=== PATIENT | male | born 1955 | race African-American/Black ===

== ENCOUNTER 2016-08-12 10:03 | Inpatient (IN) | payer OTHER ==
[2016-08-12 10:28] VITALS: BMI 37.3
--- NOTE | 2016-08-12 10:41 | HP ---
CIWA Score - CIWA Score Nausea/Vomitin-Mild Nausea/No Vomiting Muscle Tremors: 4-Moderate,w/Arms Extend Anxiety: 4-Mod. Anxious/Guarded Agitation: 1-Slight > Activity Paroxysmal Sweats: 1-Minimal Palms Moist Orientation: 0-Oriented Tacttile Disturbances: 1-Very Mild Itch/Numbness Auditory Disturbances: 1-Very Mild Visual Disturbances: 1-Very Mild Sensitivity Headache: 1-Very Mild CIWA-Ar Total Score: 15 Admission ROS BHS - HPI Chief Complaint: I fell out, they said it was from drinking and I need help to stop Allergies/Adverse Reactions: Allergies Allergy/AdvReac Type Severity Reaction Status Date / Time aspirin Allergy Intermediate Swelling Verified 08/12/16 10:44 pcn Allergy Intermediate Swelling Uncoded 08/12/16 10:44 History of Present Illness: 61 yo here for detox from alcohol. Previously in detox at [place] 30 years ago. First time detox here. Retired and then started drinking daily. Had a seizure a week ago and told he needs to stop drinking. Patient is a resident of [facility] for [facility] - states rehab has been arranged at [place] following detox. Exam Limitations: Clinical Condition - Ebola screening Have you traveled outside of the country in the last 21 days: No Have you had contact with anyone from an Ebola affected area: No Have you been sick,other than usual withdrawal symptoms: No Do you have a fever: No - Review of Systems Constitutional: No Symptoms Reported EENT: reports: Blurred Vision Respiratory: reports: No Symptoms reported Cardiac: reports: No Symptoms Reported GI: reports: No Symptoms Reported : reports: Frequency Musculoskeletal: reports: Back Pain, Joint Pain, Joint Stiffness Integumentary: reports: Dryness Neuro: reports: Seizure, Other (needs cane to walk) Endocrine: reports: No Symptoms Reported Hematology: reports: No Symptoms Reported Psychiatric: reports: Judgement Intact, Mood/Affect Appropiate, Orientated x3 Other Systems: Reviewed and Negative Patient History - Patient Medical History Hx Anemia: No Hx Asthma: No Hx Chronic Obstructive Pulmonary Disease (COPD): No Hx Cancer: No Hx Cardiac Disorders: No Hx Congestive Heart Failure: No Hx Hypertension: No Hx Hypercholesterolemia: No Hx Pacemaker: No HX Cerebrovascular Accident: No Hx Seizures: Yes (one week ago, drug related) Hx Dementia: No Hx Diabetes: No Hx Gastrointestinal Disorders: No Hx Liver Disease: No Hx Genitourinary Disorders: No Hx Sexually Transmitted Disorders: Yes (treated years ago ) Hx Renal Disease (ESRD): No Hx Thyroid Disease: No Hx Human Immunodeficiency Virus (HIV): No Hx Hepatitis C: No Hx Depression: No Hx Suicide Attempt: Yes (once 1981 - hospitalized -cut wrists) Hx Bipolar Disorder: No Hx Schizophrenia: Yes (on meds) Other Medical History: osteoarthritis, low back pain with right sided sciatica - Patient Surgical History Hx Orthopedic Surgery: Yes (right hip replacement x 2 in 1991 and 2011; left hip replacment 2010) Other Surgical History: thyroid removed 1990 ? partial - PPD History Previous Implant?: Yes Documented Results: Negative w/o proof PPD to be Administered?: Yes - Reproductive History Patient is a Female of Child Bearing Age (11 -55 yrs old): No (male) - Smoking Cessation Smoking history: Current every day smoker Have you smoked in the past 12 months: Yes Aproximately how many cigarettes per day: 5 Initiated information on smoking cessation: Yes 'Breaking Loose' booklet given: 08/12/16 (give on floor) - Substance & Tx. History Hx Alcohol Use: Yes Hx Substance Use: Yes (no cocaine x 20 years) Substance Use Type: Alcohol, Cocaine Hx Substance Use Treatment: Yes (detox, rehab) - Substances Abused Alcohol Route: Oral Frequency: Daily Amount used: four 24 oz beers Age of first use: 14 Date of Last Use: 08/12/16 Family Disease History - Family Disease History Family Disease History: Diabetes: Grandparent (, one dm), Other: Grandparent, Father (, mva, ), Mother (alive, no problems), Brother ( two bro, no problems, ), Sister (one alive, no problems, ) Admission Physical Exam S - Vital Signs Vital Signs: Vital Signs - 24 hr 08/12/16 10:26 Temperature 97.6 F Pulse Rate 79 Respiratory 20 Rate Blood Pressure 127/83 - Physical General Appearance: Yes: Nourished, Appropriately Dressed, Mild Distress, Obese , Anxious HEENTM: Yes: Normal ENT Inspection, Normocephalic, Normal Voice, Pharynx Normal Respiratory: Yes: Normal Breath Sounds, No Respiratory Distress Neck: Yes: No masses,lesions,Nodules, Supple Breast: Yes: Breast Exam Deferred Cardiology: Yes: Regular Rhythm, Regular Rate Abdominal: Yes: Soft, Protuberent Genitourinary: Yes: Frequency Back: Yes: Decreased Range of Motion Musculoskeletal: Yes: full range of Motion, Back pain, Joint Stiffness Extremities: Yes: Normal Inspection, Swelling (mild swelling RLE - chronic), Other (wearing braces on both knees) Neurological: Yes: Fully Oriented, Alert, Normal Mood/Affect, Normal Response, Numbness Integumentary: Yes: Dry, Other Lymphatic: Yes: Within Normal Limits - Diagnostic (1) Alcohol dependence with uncomplicated withdrawal Current Visit: Yes Status: Chronic (2) Nicotine dependence Current Visit: Yes Status: Chronic Qualifiers: Nicotine product type: cigarettes Substance use status: uncomplicated Qualified Code(s): F17.210 - Nicotine dependence, cigarettes, uncomplicated (3) Seizure Current Visit: Yes Status: Chronic Comment: one week ago - alcohol related (4) History of DVT of lower extremity Current Visit: Yes Status: Chronic Comment: states recurrent (5) Low back pain Current Visit: Yes Status: Acute Qualifiers: Chronicity: chronic Back pain laterality: right Sciatica presence: with sciatica Sciatica laterality: sciatica of right side Qualified Code(s): M54.41 - Lumbago with sciatica, right side (6) History of hip replacement, total Current Visit: Yes Status: Chronic Qualifiers: Laterality: bilateral Qualified Code(s): Z96.643 - Presence of artificial hip joint, bilateral (7) History of syphilis Current Visit: Yes Status: Chronic Comment: treated years ago tetracycline (PCN allergic) (8) Osteoarthritis of knees, bilateral Current Visit: Yes Status: Chronic Qualifiers: Osteoarthritis type: primary Qualified Code(s): M17.0 - Bilateral primary osteoarthritis of knee Cleared for Admission S - Detox or Rehab [facility] Level of Care: Medically Managed Detox Regimen/Protocol: Librium [facility] Breath Alcohol Content Breath Alcohol Content: 0.025 Urine Drug Screen - Results Drug Screen Negative: Yes
[2016-08-12] MEDS ORDERED: P-EPHED 60MG/TRIPROLIDI 2.5MG TABLET PO PRN (11:08)
[2016-08-12] MEDS ORDERED: MAGNESIUM HYDROX 2400MG/30ML ORAL SUSPENSION 30 ML CUP PO PRN (11:08)
[2016-08-12] MEDS ORDERED: ACETAMINOPHEN 325 MG TABLET (FP) PO PRN (11:08)
[2016-08-12] MEDS ORDERED: hydrOXYzine PAMOATE 25 MG CAPSULE (FP) PO PRN (11:08)
[2016-08-12] MEDS ORDERED: MAG HYDROX/AL HYDROX/SIMETH 30 ML UNIT-DOSE CUP PO PRN (11:08)
[2016-08-12] MEDS ORDERED: MAGNESIUM CITRATE 300 ML BOTTLE PO PRN (11:08)
[2016-08-12] MEDS ORDERED: chlordiazePOXIDE HCL 25 MG CAPSULE PO PRN (11:08)
[2016-08-12] MEDS ORDERED: LOPERAMIDE HCL 2 MG CAPSULE PO PRN (11:08)
[2016-08-12] MEDS ORDERED: MENTHOL/PHENOL 1 EACH UD MM PRN (11:08)
[2016-08-12] MEDS ORDERED: guaiFENesin/D-METHORPHAN HB 10 ML UNIT-DOSE CUPS PO PRN (11:08)
[2016-08-12] MEDS ORDERED: ALBUTEROL SO4 6.7 GM HFA INHALER IH PRN (11:10)
[2016-08-12] MEDS ORDERED: chlordiazePOXIDE HCL 25 MG CAPSULE PO ONE (12:00)
[2016-08-12] MEDS: LIDOCAINE 5% TOPICAL PATCH TP SCH (13:57)
[2016-08-12] MEDS: chlordiazePOXIDE HCL 25 MG CAPSULE PO SCH ×2 (17:34→22:18)
[2016-08-12 18:25] LABS: URINE APPEARANCE CLEAR; URINE BILIRUBIN NEGATIVE (NEGATIVE); URINE BLOOD NEGATIVE (NEGATIVE); URINE COLOR STRAW; URINE GLUCOSE (UA) NEGATIVE (NEGATIVE); URINE KETONE NEGATIVE (NEGATIVE); URINE LEUK ESTERASE NEGATIVE (NEGATIVE); URINE NITRITE NEGATIVE (NEGATIVE); URINE PROTEIN NEGATIVE (NEGATIVE); URINE UROBILINOGEN NEGATIVE E.U./dl (0.2-1.0)
[2016-08-12] MEDS ORDERED: diphenhydrAMINE HCL 50 MG CAPSULE PO PRN (22:00)
[2016-08-12] MEDS: OMEGA-3 ACID ETHYL ESTERS (FATTY-ACIDS) 1 GM CAPSULE (FP) PO SCH (22:18)
[2016-08-12] MEDS: APIXABAN 5 MG TABLET PO SCH (22:18)
[2016-08-12] MEDS: ATORVASTATIN CA 20 MG TABLET (FP) PO SCH (22:18)
[2016-08-12] MEDS: THIAMINE HCL 100 MG TABLET (FP) PO SCH (22:18)
[2016-08-12] MEDS: LIDOCAINE PATCH REMOVAL MC SCH (22:32)
[2016-08-13] MEDS: chlordiazePOXIDE HCL 25 MG CAPSULE PO SCH ×4 (06:05→22:35)
[2016-08-13] MEDS: APIXABAN 5 MG TABLET PO SCH ×2 (10:23→22:35)
[2016-08-13] MEDS: PRENATAL VITAMINS W/ FOLIC ACID TABLET (FP) PO SCH (10:23)
[2016-08-13] MEDS: OMEGA-3 ACID ETHYL ESTERS (FATTY-ACIDS) 1 GM CAPSULE (FP) PO SCH ×2 (10:23→22:35)
[2016-08-13] MEDS: CLOPIDOGREL BISULFATE 75 MG TABLET (FP) PO SCH (10:23)
[2016-08-13] MEDS: LIDOCAINE 5% TOPICAL PATCH TP SCH (10:24)
[2016-08-13 10:48] LABS: MCH 27.8 pg (25.7-33.7); MCHC 32.8 g/dl (32.0-35.9); MEAN CELL VOLUME 84.8 fl (80-96); PLATELET COUNT 184 K/MM3 (134-434); RDW 14.9 % (11.9-15.9); WHITE BLOOD COUNT 9.4 K/mm3 (4.0-10.0)
--- NOTE | 2016-08-13 10:54 | PN ---
[facility] CIWA - CIWA Score Nausea/Vomitin-No Nausea/No Vomiting Muscle Tremors: 4-Moderate,w/Arms Extend Anxiety: 4-Mod. Anxious/Guarded Agitation: 4-Moderately Restless Paroxysmal Sweats: 3 Orientation: 0-Oriented Tacttile Disturbances: 1-Very Mild Itch/Numbness Auditory Disturbances: 0-None Visual Disturbances: 0-None Headache: 0-None Present CIWA-Ar Total Score: 16 S Progress Note (SOAP) Subjective: Anxiety,tremors,sweating,interrupted sleep,restless Objective: 08/13/16 10:53 Vital Signs - 8 hr 08/13/16 08/13/16 08/13/16 04:29 06:00 09:48 Temperature 97.2 F L 97.2 F L Pulse Rate 86 83 Respiratory 18 18 18 Rate Blood Pressure 106/86 140/74 Laboratory Tests 08/12/16 17:55 Urine Color Straw Urine Appearance Clear Urine pH 6.0 Ur Specific [place] <= 1.005 Urine Protein Negative Urine Glucose (UA) Negative Urine Ketones Negative Urine Blood Negative Urine Nitrite Negative Urine Bilirubin Negative Urine Urobilinogen Negative Ur Leukocyte Esterase Negative Assessment: 08/13/16 10:54 Withdrawal sx. Plan: Continue detox
[2016-08-13 11:08] LABS: ALBUMIN 3.6 g/dl (3.4-5.0); ALK PHOS 58 U/L (45-117); ANION GAP 8 (8-16); BILIRUBIN,TOTAL 0.3 mg/dL (0.2-1.0); CALCIUM 8.5 mg/dL (8.5-10.1); CO2 25 mmol/L (21-32); COCKROFT - GAULT 130.12; CREATININE 0.8 mg/dL (0.7-1.3); GLUCOSE,RANDOM 123 mg/dL (74-106); SGOT/AST 13 U/L (15-37); SGPT/ALT 14 U/L (12-78)
[2016-08-13 12:47] LABS: SICKLE CELL SCREEN NEGATIVE (NEGATIVE)
--- NOTE | 2016-08-13 16:37 | EKG ---
Test Reason : Blood Pressure : / mmHG Vent. Rate : 085 BPM Atrial Rate : 085 BPM P-R Int : 146 ms QRS Dur : 096 ms QT Int : 372 ms P-R-T Axes : 059 050 042 degrees QTc Int : 442 ms NORMAL SINUS RHYTHM NORMAL ECG NO PREVIOUS ECGS AVAILABLE Confirmed by KRYSTAL BERMUDEZ MD ([id number]) on 08/13/2016 4:36:44 PM Referred By: Confirmed By:KRYSTAL BERMUDEZ MD
[2016-08-13] MEDS: ATORVASTATIN CA 20 MG TABLET (FP) PO SCH (22:35)
[2016-08-13] MEDS: THIAMINE HCL 100 MG TABLET (FP) PO SCH (22:35)
[2016-08-13] MEDS: LIDOCAINE PATCH REMOVAL MC SCH (22:36)
[2016-08-14] MEDS: chlordiazePOXIDE HCL 25 MG CAPSULE PO SCH ×2 (05:49→10:39)
--- NOTE | 2016-08-14 09:09 | CONSULT ---
[facility] Psychiatric Consult - Data Date of interview: 08/14/16 Admission source: [facility] Identifying data: beverly New is 61 years old male with psychiatrioc hospitalization history, history of Schizophrenia, intoxicated with: Alcohol Substance Abuse History: - Smoking Cessation. Smoking history: Current every day smoker. Have you smoked in the past 12 months: Yes. Aproximately how many cigarettes per day: 5. Initiated information on smoking cessation: Yes. ' Breaking Loose' booklet given: 08/12/16 (give on floor). - Substance & Tx. History. Hx Alcohol Use: Yes. Hx Substance Use: Yes (no cocaine x 20 years). Substance Use Type: Alcohol, Cocaine. Hx Substance Use Treatment: Yes (detox, rehab). - Substances Abused. Alcohol. Route: Oral. Frequency: Daily. Amount used: four 24 oz beers. Age of first use: 14. Date of Last Use: Medical History: LBP, DVT, History of Hip replacement, Both Knees Ostaeoarthritis, Seizure history Psychiatric History: Patient reports history of Schizophrenia, reports long time stable on: Prolixin 25mg po bid. Cogentine 2mg po bid. Reports last psychiatric admission on about 39 years ago Physical/Sexual Abuse/Trauma History: Denies Additional Comment: Observation. Detox Unit Care Protocol. Prolixin 25mg po bid. Cogentine 2mg po bid Mental Status Exam - Mental Status Exam Alert and Oriented to: Person Cognitive Function: Fair Patient Appearance: Unkempt Mood: Sad Affect: Constricted Patient Behavior: Cooperative Speech Pattern: Delayed Voice Loudness: Mildly Soft/Quiet Thought Process: Circumstantial, Goal Oriented Thought Disorder: Being Controlled Hallucinations: Denies Suicidal Ideation: Denies Homicidal Ideation: Denies Insight/Judgement: Fair Sleep: Difficulty falling asleep Appetite: Weight gain Muscle strength/Tone: Normal Gait/Station: Shuffling Additional Comments: Prolixin 25mg po bid. Cogentine 2mg po bid Psychiatric Findings - Problem List ([place] 1, 2,3) (1) Alcohol dependence with uncomplicated withdrawal Current Visit: Yes Status: Chronic (2) Nicotine dependence Current Visit: Yes Status: Chronic Qualifiers: Nicotine product type: cigarettes Substance use status: uncomplicated Qualified Code(s): F17.210 - Nicotine dependence, cigarettes, uncomplicated (3) Paranoid schizophrenia Current Visit: Yes Status: Acute - Initial Treatment Plan Initial Treatment Plan: Prolixin 25mg po bid. Cogentine 2mg po bid
--- NOTE | 2016-08-14 09:58 | PN ---
S CIWA - CIWA Score Nausea/Vomitin Muscle Tremors: 3 Anxiety: 3 Agitation: 2 Paroxysmal Sweats: 1-Minimal Palms Moist Orientation: 0-Oriented Tacttile Disturbances: 1-Very Mild Itch/Numbness Auditory Disturbances: 1-Very Mild Visual Disturbances: 1-Very Mild Sensitivity Headache: 2-Mild CIWA-Ar Total Score: 17 BHS Progress Note (SOAP) Subjective: ALERT,IRRITABLE,ANXIOUS,INTERRUPTED SLEEP,TREMOR Objective: 08/14/16 09:56 Vital Signs Temperature 97.5 F L 08/14/16 06:37 Pulse Rate 75 08/14/16 06:37 Respiratory Rate 18 08/14/16 06:37 Blood Pressure 121/80 08/14/16 06:37 O2 Sat by Pulse Oximetry (%) EKG NSR,NORMAL ECG Laboratory Last Values WBC 9.4 K/mm3 (4.0-10.0) 08/13/16 07:45 RBC 5.15 M/mm3 (4.00-5.60) 08/13/16 07:45 Hgb 14.3 GM/dL (11.7-16.9) 08/13/16 07:45 Hct 43.6 % (35.4-49) 08/13/16 07:45 MCV 84.8 fl (80-96) 08/13/16 07:45 MCHC 32.8 g/dl (32.0-35.9) 08/13/16 07:45 RDW 14.9 % (11.9-15.9) 08/13/16 07:45 Plt Count 184 K/MM3 (134-434) 08/13/16 07:45 MPV 10.0 fl (7.5-11.1) 08/13/16 07:45 Sickle Cell Screen Negative (NEGATIVE) 08/13/16 07:45 Sodium 135 mmol/L (136-145) L 08/13/16 07:45 Potassium 4.0 mmol/L (3.5-5.1) 08/13/16 07:45 Chloride 102 mmol/L (98-107) 08/13/16 07:45 Carbon Dioxide 25 mmol/L (21-32) 08/13/16 07:45 Anion Gap 8 (8-16) 08/13/16 07:45 BUN 4 mg/dL (7-18) L 08/13/16 07:45 Creatinine 0.8 mg/dL (0.7-1.3) 08/13/16 07:45 Creat Clearance w eGFR > 60 (>60) 08/13/16 07:45 Random Glucose 123 mg/dL (74-106) H 08/13/16 07:45 Calcium 8.5 mg/dL (8.5-10.1) 08/13/16 07:45 Total Bilirubin 0.3 mg/dL (0.2-1.0) 08/13/16 07:45 AST 13 U/L (15-37) L 08/13/16 07:45 ALT 14 U/L (12-78) 08/13/16 07:45 Alkaline Phosphatase 58 U/L (45-117) 08/13/16 07:45 Total Protein 7.0 g/dl (6.4-8.2) 08/13/16 07:45 Albumin 3.6 g/dl (3.4-5.0) 08/13/16 07:45 Urine Color Straw 08/12/16 17:55 Urine Appearance Clear 08/12/16 17:55 Urine pH 6.0 (5.0-8.0) 08/12/16 17:55 Ur Specific [place] <= 1.005 (1.005-1.025) 08/12/16 17:55 Urine Protein Negative (NEGATIVE) 08/12/16 17:55 Urine Glucose (UA) Negative (NEGATIVE) 08/12/16 17:55 Urine Ketones Negative (NEGATIVE) 08/12/16 17:55 Urine Blood Negative (NEGATIVE) 08/12/16 17:55 Urine Nitrite Negative (NEGATIVE) 08/12/16 17:55 Urine Bilirubin Negative (NEGATIVE) 08/12/16 17:55 Urine Urobilinogen Negative E.U./dl (0.2-1.0) 08/12/16 17:55 Ur Leukocyte Esterase Negative (NEGATIVE) 08/12/16 17:55 RPR Titer Nonreactive (NONREACTIVE) 08/13/16 07:45 Assessment: 08/14/16 09:57 WITHDRAWAL SYMPTOM Plan: CONTINUE DETOX,BGM MONITORING INITIAL GLUCOSE IS 125,FASTING GLUCOSE IN AM
[2016-08-14] MEDS: LIDOCAINE 5% TOPICAL PATCH TP SCH (10:39)
[2016-08-14] MEDS: OMEGA-3 ACID ETHYL ESTERS (FATTY-ACIDS) 1 GM CAPSULE (FP) PO SCH ×2 (10:39→22:24)
[2016-08-14] MEDS: CLOPIDOGREL BISULFATE 75 MG TABLET (FP) PO SCH (10:39)
[2016-08-14] MEDS: PRENATAL VITAMINS W/ FOLIC ACID TABLET (FP) PO SCH (10:39)
[2016-08-14] MEDS: APIXABAN 5 MG TABLET PO SCH ×2 (10:39→22:24)
[2016-08-14] MEDS: BENZTROPINE MESYLATE 1 MG TABLET (FP) PO SCH ×2 (10:42→22:24)
[2016-08-14] MEDS: chlordiazePOXIDE 5 MG CAPSULE PO SCH ×2 (17:37→22:25)
[2016-08-14] MEDS: ATORVASTATIN CA 20 MG TABLET (FP) PO SCH (22:24)
[2016-08-14] MEDS: THIAMINE HCL 100 MG TABLET (FP) PO SCH (22:24)
[2016-08-14] MEDS: LIDOCAINE PATCH REMOVAL MC SCH (22:27)
[2016-08-15] MEDS: chlordiazePOXIDE 5 MG CAPSULE PO SCH ×2 (05:37→10:44)
[2016-08-15] MEDS ORDERED: ERGOCALCIFEROL (VITAMIN D2) 50,000 UNIT CAPSULE (FP) PO SCH (10:00)
[2016-08-15] MEDS: PRENATAL VITAMINS W/ FOLIC ACID TABLET (FP) PO SCH (10:43)
[2016-08-15] MEDS: BENZTROPINE MESYLATE 1 MG TABLET (FP) PO SCH ×2 (10:43→22:42)
[2016-08-15] MEDS: CLOPIDOGREL BISULFATE 75 MG TABLET (FP) PO SCH (10:43)
[2016-08-15] MEDS: APIXABAN 5 MG TABLET PO SCH ×2 (10:44→22:42)
[2016-08-15] MEDS: OMEGA-3 ACID ETHYL ESTERS (FATTY-ACIDS) 1 GM CAPSULE (FP) PO SCH ×2 (10:44→22:42)
--- NOTE | 2016-08-15 11:10 | PN ---
BHS Progress Note (SOAP) Subjective: ALERT,IRRITABLE,ANXIOUS,INTERRUPTED SLEEP Objective: 08/15/16 11:09 Vital Signs Temperature 98.1 F 08/15/16 10:36 Pulse Rate 79 08/15/16 10:36 Respiratory Rate 18 08/15/16 10:36 Blood Pressure 133/87 08/15/16 10:36 O2 Sat by Pulse Oximetry (%) Laboratory Results - last 24 hr 08/15/16 07:00 Fasting Glucose 103 Assessment: 08/15/16 11:10 WITHDRAWAL SYMPTOM Plan: CONTINUE DETOX
[2016-08-15] MEDS: LIDOCAINE 5% TOPICAL PATCH TP SCH (11:24)
[2016-08-15] MEDS: chlordiazePOXIDE HCL 10 MG CAPSULE PO SCH ×2 (16:53→22:42)
[2016-08-15] MEDS: THIAMINE HCL 100 MG TABLET (FP) PO SCH (22:42)
[2016-08-15] MEDS: ATORVASTATIN CA 20 MG TABLET (FP) PO SCH (22:42)
[2016-08-15] MEDS: LIDOCAINE PATCH REMOVAL MC SCH (22:44)
[2016-08-16] MEDS: chlordiazePOXIDE HCL 10 MG CAPSULE PO SCH (05:07)
--- NOTE | 2016-08-16 08:53 | PN ---
S Progress Note (SOAP) Subjective: ALERT,NO COMPLAINT Objective: 08/16/16 08:52 Vital Signs Temperature 96.8 F L 08/16/16 06:00 Pulse Rate 98 H 08/16/16 06:00 Respiratory Rate 18 08/16/16 06:00 Blood Pressure 130/76 08/16/16 06:00 O2 Sat by Pulse Oximetry (%) Assessment: 08/16/16 08:52 DETOX COMPLETED,NO WITHDRAWAL SYMPTOM Plan: DISCHARGE TODAY,FOLLOW UP WITH AFTER CARE PROGRAM ARRANGEMENT
--- NOTE | 2016-08-16 09:00 | DS ---
[facility] Detox Discharge Summary Admission Date: 08/12/16 Discharge Date: 08/16/16 - History Present History: Alcohol Dependence Additional Comments: FOLLOW UP WITH AFTER CARE PROGRAM ARRANGEMENT AND PMD FOR MEDICAL PROBLEM, PATIENT HAS ALL MEDICATION AT HOME Pertinent Past History: SEIZURE LOW BACK PAIN OSTEOARTHRITIS BOTH KNEES S/P BILATERAL HIP REPLACEMENT - Physical Exam Results Vital Signs: Vital Signs Temperature 96.8 F L 08/16/16 06:00 Pulse Rate 98 H 08/16/16 06:00 Respiratory Rate 18 08/16/16 06:00 Blood Pressure 130/76 08/16/16 06:00 O2 Sat by Pulse Oximetry (%) Pertinent Admission Physical Exam Findings: WITHDRAWAL SYMPTOM - Treatment Hospital Course: Detox Protocol Followed, Detoxed Safely, Responded well, Discharged Condition Good, Rehab Referral Accepted Patient has Accepted a Rehab Referral to: [facility] - Medication Discharge Medications: Ambulatory Orders Albuterol Sulfate Inhaler - [Ventolin Hfa Inhaler -] 1 - 2 inh PO QID 08/12/16 Apixaban [Eliquis -] 5 mg PO BID 08/12/16 Benztropine Mesylate [Cogentin -] 2 mg PO BID 08/12/16 Clopidogrel Bisulfate [Clopidogrel] 75 mg PO DAILY 08/12/16 D-Methorphan/PE/Acetaminophen [Mapap Cold Formula Caplet] 325 mg PO PRN Fluphenazine HCl [Prolixin -] 25 mg PO BID 08/12/16 Folic Acid - 1 mg PO DAILY 08/12/16 Mag Hydrox/Al Hydrox/Simeth [Janie-Lanta Liquid] 200 ml PO PRN 08/12/16 [place]-3 Acid Ethyl Esters [Lovaza -] 1,000 mg PO BID 08/12/16 Simvastatin [Zocor -] 40 mg PO DAILY 08/12/16 Tramadol HCl [Ultram -] 50 mg PO DAILY 08/12/16 Benztropine Mesylate [Cogentin -] 2 mg PO BID #60 tablet 08/14/16 Fluphenazine HCl [Prolixin -] 25 mg PO BID #60 tablet 08/14/16 - Diagnosis (1) Low back pain Current Visit: Yes Status: Acute Qualifiers: Chronicity: chronic Back pain laterality: right Sciatica presence: with sciatica Sciatica laterality: sciatica of right side Qualified Code(s): M54.41 - Lumbago with sciatica, right side (2) Paranoid schizophrenia Current Visit: Yes Status: Acute (3) Alcohol dependence with uncomplicated withdrawal Current Visit: Yes Status: Chronic (4) History of hip replacement, total Current Visit: Yes Status: Chronic Qualifiers: Laterality: bilateral Qualified Code(s): Z96.643 - Presence of artificial hip joint, bilateral (5) Nicotine dependence Current Visit: Yes Status: Chronic Qualifiers: Nicotine product type: cigarettes Substance use status: uncomplicated Qualified Code(s): F17.210 - Nicotine dependence, cigarettes, uncomplicated (6) Osteoarthritis of knees, bilateral Current Visit: Yes Status: Chronic Qualifiers: Osteoarthritis type: primary Qualified Code(s): M17.0 - Bilateral primary osteoarthritis of knee (7) Seizure Current Visit: Yes Status: Chronic - AMA Did Patient Leave Against Medical Advice: No
[2016-08-16] MEDS: OMEGA-3 ACID ETHYL ESTERS (FATTY-ACIDS) 1 GM CAPSULE (FP) PO SCH (09:37)
[2016-08-16] MEDS: APIXABAN 5 MG TABLET PO SCH (09:37)
[2016-08-16] MEDS: CLOPIDOGREL BISULFATE 75 MG TABLET (FP) PO SCH (09:37)
[2016-08-16] MEDS: PRENATAL VITAMINS W/ FOLIC ACID TABLET (FP) PO SCH (09:37)
[2016-08-16] MEDS: BENZTROPINE MESYLATE 1 MG TABLET (FP) PO SCH (09:38)
[2016-08-16 10:04] VITALS: BP 134/64; PULSE 78; TEMP 97.5
== END 2016-08-16 10:28 | disposition home or self-care (01) | DRG 897 ==
LOC: YASAS 10:03 → Y6N 11:37
PROVIDERS: ADMIT Internal Medicine; ATTEND Internal Medicine
PROC: HZ2ZZZZ Detoxification Services for Substance Abuse Treatment (ICD-10-PCS; principal; 2016-08-16)
DX: F19.230 Other psychoactive substance dependence with withdrawal, uncomplicated (principal); G40.509 Epileptic seizures related to external causes, not intractable, without status epilepticus; F10.230 Alcohol dependence with withdrawal, uncomplicated; F17.210 Nicotine dependence, cigarettes, uncomplicated; M17.0 Bilateral primary osteoarthritis of knee; M54.41 Lumbago with sciatica, right side; Z96.643 Presence of artificial hip joint, bilateral
CPT/HCPCS: 36415; 80053; 81003; 82947; 85027; 85660; 86593; 93005; 93010